=== PATIENT | male | born 1980 | race Caucasian/White ===

== ENCOUNTER 2018-11-20 19:56 | Emergency (ER) | payer OTHER ==
[~2018-11-20] VITALS: Ht 177.8 cm; Wt 77.8 kg
[2018-11-20 19:59] VITALS: BP 136/90
[2018-11-20 20:40] LABS: RAPID INFLUENZA A Negative (Negative); RAPID INFLUENZA B Negative (Negative)
--- NOTE | 2018-11-20 20:54 | NUR ---
ALL RESULTS BACK. PT UP FOR RECHECK.
== END 2018-11-20 21:14 | disposition home or self-care (01) ==
LOC: ED 20:55
DX: J98.01 Acute bronchospasm (principal)
CPT/HCPCS: 71046; 87400; 99284